=== PATIENT | male | born 1935 | race Caucasian/White ===

== ENCOUNTER 2016-09-15 12:36 | Inpatient (IN) | payer MEDICARE ==
[~2016-09-15] VITALS: Ht 185.4 cm; Wt 82.1 kg
[~2016-09-15 12:36] MED LIST: ASPI-515 PO; ATOR40TA78 PO; CLOP75TA22 PO; METO-93 PO; VERA240C2 PO
[2016-09-15 17:41] VITALS: BP 178/114
[2016-09-15] MEDS ORDERED: LORazepam 2 MG/ML, 1ML IVPush PRN ×2 (19:00)
[2016-09-15] MEDS ORDERED: ENALAPRILAT 1.25 MG/ML, 2ML IVPush PRN (19:00)
[2016-09-15] MEDS ORDERED: HALOPERIDOL 5 MG/ML IM PRN (19:00)
[2016-09-15] MEDS: BISACODYL 10 MG SUPP PR SCH (19:00)
[2016-09-15 20:00] VITALS: BP 177/91
[2016-09-15] MEDS: ENOXAPARIN 40 MG/0.4 ML SQ SCH (20:54)
[2016-09-15] MEDS: D5%-0.45% NACL 1,000 ML IV SCH (20:54)
[2016-09-15] MEDS ORDERED: LABETALOL 5MG/ML, 20ML IVPush SCH (21:00)
[2016-09-16 02:00] VITALS: BP 173/105
[2016-09-16 05:44] LABS: BLOOD UREA NITROGEN 23 mg/dL (7-18)
[2016-09-16 07:40] VITALS: BP 187/114
[2016-09-16] MEDS: D5%-0.45% NACL 1,000 ML IV SCH ×2 (08:16→23:04)
[2016-09-16] MEDS: METOPROLOL 1 MG/ML, 5ML IVPush SCH ×2 (08:30→15:52)
[2016-09-16] MEDS: BISACODYL 10 MG SUPP PR SCH (08:30)
[2016-09-16 12:33] VITALS: BP 189/86
[2016-09-16] MEDS ORDERED: ENALAPRILAT 1.25 MG/ML, 2ML IVPush PRN (13:00)
[2016-09-16] MEDS ORDERED: MORPHINE SULFATE 4 MG/ML, 1ML IVPush PRN (17:30)
[2016-09-16] MEDS ORDERED: MAGNESIUM SULFATE PMX 2GM/50ML 50 ML IV ONE (17:30)
[2016-09-16] MEDS: ENALAPRILAT 1.25 MG/ML, 2ML IVPush SCH (19:54)
[2016-09-16] MEDS: ENOXAPARIN 40 MG/0.4 ML SQ SCH (19:55)
[2016-09-16 19:58] VITALS: BP 161/111
[2016-09-16 20:00] VITALS: BP 180/108
[2016-09-17 02:00] VITALS: BP 166/91
[2016-09-17] MEDS: ENALAPRILAT 1.25 MG/ML, 2ML IVPush SCH ×4 (02:38→20:31)
[2016-09-17 04:27] LABS: BLOOD UREA NITROGEN 24 mg/dL (7-18)
[2016-09-17 06:56] VITALS: BP 148/86
[2016-09-17 09:30] VITALS: BP 146/82
[2016-09-17] MEDS: BISACODYL 10 MG SUPP PR SCH (11:04)
[2016-09-17 11:47] LABS: PATH.CAST-FLAG NOT PRESENT; SPERM-FLAG NOT PRESENT; SRC-FLAG NOT PRESENT; XTAL-FLAG NOT PRESENT; YLC-FLAG NOT PRESENT
[2016-09-17 13:00] VITALS: BP 151/81
[2016-09-17] MEDS: D5%-0.45% NACL 1,000 ML IV SCH ×2 (14:12→23:57)
[2016-09-17 15:30] VITALS: BP 148/84
[2016-09-17 19:51] VITALS: BP 166/83
[2016-09-17] MEDS: ENOXAPARIN 40 MG/0.4 ML SQ SCH (20:31)
[2016-09-17] MEDS ORDERED: HALOPERIDOL 5 MG TABLET PO SCH (21:00)
[2016-09-18] VITALS (8 sets, daily range): BP systolic 120–207; BP diastolic 55–132
[2016-09-18] MEDS: ENALAPRILAT 1.25 MG/ML, 2ML IVPush SCH ×4 (01:51→20:59)
[2016-09-18 05:31] LABS: BLOOD UREA NITROGEN 22 mg/dL (7-18)
[2016-09-18 05:35] LABS: ASPARTATE AMINO TRANSFERASE 27 U/L (15-37)
[2016-09-18] MEDS: LORazepam 2 MG/ML, 1ML IVPush PRN ×2 (05:48→17:52)
[2016-09-18] MEDS: LABETALOL 5MG/ML, 20ML IVPush PRN ×2 (05:48→16:56)
[2016-09-18] MEDS: BISACODYL 10 MG SUPP PR SCH (09:00)
[2016-09-18] MEDS: D5%-0.45% NACL 1,000 ML IV SCH ×2 (09:02→18:34)
[2016-09-18] MEDS ORDERED: hydrALAzine 20 MG/ML, 1ML IV PRN (19:00)
[2016-09-18] MEDS: ENOXAPARIN 40 MG/0.4 ML SQ SCH (20:58)
[2016-09-19 02:22] VITALS: BP 177/84
[2016-09-19] MEDS: ENALAPRILAT 1.25 MG/ML, 2ML IVPush SCH ×3 (02:25→14:44)
[2016-09-19] MEDS: D5%-0.45% NACL 1,000 ML IV SCH ×2 (02:26→10:05)
[2016-09-19 08:07] VITALS: BP 172/93
[2016-09-19] MEDS: BISACODYL 10 MG SUPP PR SCH (09:00)
[2016-09-19] MEDS ORDERED: SCOPOLAMINE PATCH, 1.5MG PATCH.TD72 TD SCH (12:30)
[2016-09-19 14:38] VITALS: BP 180/83
[2016-09-19] MEDS ORDERED: D5%-0.45% NACL 1,000 ML IV SCH (18:43)
== END 2016-09-19 19:09 | DRG 70 ==
LOC: 4WST 17:27
PROVIDERS: ADMIT Internal Medicine; ATTEND Internal Medicine
PROC: 0T9B70Z Drainage of Bladder with Drainage Device, Via Natural or Artificial Opening (ICD-10-PCS; principal; 2016-09-17)
DX: G93.41 Metabolic encephalopathy (principal); R53.2 Functional quadriplegia; I50.32 Chronic diastolic (congestive) heart failure; D68.69 Other thrombophilia; R13.19 Other dysphagia; F02.80 Dementia in other diseases classified elsewhere, unspecified severity, without behavioral disturbance, psychotic disturbance, mood disturbance, and anxiety; E78.5 Hyperlipidemia, unspecified; G30.9 Alzheimer's disease, unspecified; I11.0 Hypertensive heart disease with heart failure; I45.81 Long QT syndrome; W18.30XA Fall on same level, unspecified, initial encounter; I48.2 Chronic atrial fibrillation; Z66 Do not resuscitate; Z86.73 Personal history of transient ischemic attack (TIA), and cerebral infarction without residual deficits; Y93.89 Activity, other specified; Y92.89 Other specified places as the place of occurrence of the external cause; Z51.5 Encounter for palliative care
CPT/HCPCS: 36415; 70551; 71010; 80048; 80053; 80076; 81001; 83735; 84100; 85025; 93005; 93306; 95819; J1650; J1630; J2060; J3475